=== PATIENT | female | born 1950 | race African-American/Black ===

== ENCOUNTER → 2017-04-16 | Outpatient (CLI) | payer MEDICARE, OTHER ==
[~2017-04-16] MED LIST: AMIT25TA9 PO; AMLO5 PO; CHAR280C PO; FERR325C PO; KETO10 PO; POTA99TA4 PO; PROM25TA10 PO; TYLE325T PO; VITA250C3 CHEW
[2017-04-16 11:45] LABS: AUTOMATED NEUTROPHIL # 1.7 TH/MM3 (1.8-7.7); BASOPHIL % 0.4 % (0.0-2.0); EOSINOPHIL # 0.1 TH/MM3 (0-0.4); EOSINOPHIL % 2.1 % (0.0-4.0); HEMATOCRIT 36.8 % (35.0-46.0); HEMO FLAGS DIFF FINAL; LYMPH % 45.9 % (9.0-44.0); LYMPHOCYTE # 1.9 TH/MM3 (1.0-4.8); MEAN CELL VOLUME 93.8 FL (80.0-100.0); MEAN CORPUSCULAR HEMOGLOBIN 30.8 PG (27.0-34.0); MEAN CORPUSCULAR HGB CONC 32.9 % (32.0-36.0); MONO % 10.1 % (0.0-8.0); NEUT % 41.5 % (16.0-70.0); PLATELET COUNT 291 TH/MM3 (150-450); RED BLOOD COUNT 3.92 MIL/MM3 (4.00-5.30); RED CELL DISTRIBUTION WIDTH 13.7 % (11.6-17.2); WHITE BLOOD COUNT 4.1 TH/MM3 (4.0-11.0)
--- NOTE | 2017-04-17 20:06 | EKG ---
Date Performed: 04/16/2017 Time Performed: 11:43:40 PTAGE: 66 years EKG: Sinus rhythm . rSr'(V1) - probable normal variant Septal T wave changes are nonspecific Borderline ECG NO PREVIOUS TRACING DOCTOR: Cassie Aly Interpretating Date/Time 04/17/2017 20:05:07
== END ==
LOC: CLAB 11:19
PROVIDERS: ATTEND Surgery
DX: K43.2 Incisional hernia without obstruction or gangrene (principal); R94.31 Abnormal electrocardiogram [ECG] [EKG]
CPT/HCPCS: 36415; 85025; 93005

== ENCOUNTER 2017-04-22 05:52 | Inpatient (IN) | payer MEDICARE ==
[~2017-04-22] VITALS: Ht 149.9 cm; Wt 58.7 kg
[2017-04-22] MEDS ORDERED: AMLO5 PO (07:53)
[2017-04-22] MEDS ORDERED: POTA99TA4 PO (08:01)
[2017-04-22] MEDS ORDERED: CHAR280C PO (08:01)
[2017-04-22] MEDS ORDERED: AMIT25TA9 PO (08:01)
[2017-04-22] MEDS ORDERED: TYLE325T PO (08:01)
[2017-04-22] MEDS ORDERED: FERR325C PO (08:01)
[2017-04-22] MEDS ORDERED: PROM25TA10 PO (08:01)
[2017-04-22] MEDS ORDERED: VITA250C3 CHEW (08:01)
[2017-04-22] MEDS ORDERED: LACTATED RINGER'S 1000 ML IV PRN (08:15)
[2017-04-22] MEDS ORDERED: POVIDONE IODINE 5% (ANTISEPSIS KIT) 4 APPLICATIONS EACH NARE PRN (08:15)
[2017-04-22] MEDS ORDERED: CHLORHEXIDINE GLUCONATE 2 % 1 PACK (2 CLOTHS) TOPICAL PRN (08:15)
[2017-04-22] MEDS ORDERED: METOPROLOL TARTRATE 25 MG TAB PO PRN (08:15)
[2017-04-22] MEDS ORDERED: SODIUM CHLORID 0.9% 500 ML IV PRN (08:15)
[2017-04-22] MEDS ORDERED: INSULIN HUMAN REGULAR 1,000 UNITS/10 ML VIAL SQ PRN (08:15)
[2017-04-22] MEDS ORDERED: ePHEDrine/NS 25 MG/5 ML SYR IV ONE (08:50)
[2017-04-22] MEDS ORDERED: NEOSTIGMINE 3 MG/3 ML SYR IV ONE (08:50)
[2017-04-22] MEDS ORDERED: PROPOFOL 200 MG/20 ML AMP IV ONE (08:50)
[2017-04-22] MEDS ORDERED: ONDANSETRON HCL 4 MG/2 ML VIAL IV PUSH ONE (08:50)
[2017-04-22] MEDS ORDERED: PHENYLEPH/NS 1000 MCG/10 ML SYR IV ONE (08:50)
[2017-04-22] MEDS ORDERED: ACETAMINOPHEN 1000 MG/100 ML VIAL IV SCH (09:15)
[2017-04-22] MEDS ORDERED: ceFAZolin 2 GM PREMIX 50 ML IV SCH (09:15)
[2017-04-22] MEDS ORDERED: FAMOTIDINE 20 MG/2 ML VIAL ONE (10:04)
[2017-04-22] MEDS ORDERED: ACETAMINOPHEN 1000 MG/100 ML 0 ML IV ONE (10:04)
[2017-04-22] MEDS ORDERED: BUPIVACAINE/EPINEPHRINE 0.25% 50 ML VIAL ONE (10:04)
[2017-04-22] MEDS ORDERED: DO NOT ADM ANY ANTICOAGULANT DRUGS PRN (12:54)
[2017-04-22] MEDS ORDERED: MIDAZOLAM HCL 2 MG/2 ML VIAL ONE (12:59)
[2017-04-22] MEDS ORDERED: oxyCODONE/ACETAMINOPHEN 5 MG/325 MG TAB ONE (14:25)
[2017-04-22] MEDS: oxyCODONE/ACETAMINOPHEN 5 MG/325 MG TAB PO PRN ×2 (14:30→18:24)
[2017-04-22] MEDS ORDERED: KETOROLAC TROMETHAMINE 60 MG/2 ML (IM) VIAL IM ONE (15:15)
[2017-04-22] MEDS ORDERED: SODIUM CHLORIDE 0.9% FLUSH 10 ML FLUSH IV FLUSH PRN (15:15)
[2017-04-22] MEDS ORDERED: oxyCODONE/ACETAMINOPHEN 5 MG/325 MG TAB PO PRN (15:15)
[2017-04-22] MEDS: amLODIPine BESYLATE 5 MG TAB PO SCH (16:30)
[2017-04-22] MEDS ORDERED: ACETAMINOPHEN 325 MG TAB PO PRN (16:30)
[2017-04-22] MEDS ORDERED: fentaNYL 50 MCG/HR PATCH T-DERMAL SCH (17:00)
[2017-04-22] MEDS: KETOROLAC TROMETHAMINE 30 MG/ML (IVP) VIAL IV PUSH SCH ×2 (17:15→23:53)
[2017-04-22 20:00] VITALS: BP 124/74; PULSE 90; RESP 16; TEMP 97.8; O2SAT 92
[2017-04-22] MEDS: ONDANSETRON HCL 4 MG/2 ML VIAL IV PRN (20:32)
[2017-04-22] MEDS: SODIUM CHLORIDE 0.9% FLUSH 10 ML FLUSH IV FLUSH SCH (20:36)
[2017-04-22] MEDS: AMITRIPTYLINE HCL 25 MG TAB PO SCH (20:36)
[2017-04-23] VITALS (7 sets, daily range): BP systolic 104–142; BP diastolic 57–84; PULSE 76–92; RESP 16–18; TEMP 96.6–97.9; O2SAT 93–100
[2017-04-23] MEDS: ONDANSETRON HCL 4 MG/2 ML VIAL IV PRN ×2 (02:57→08:25)
[2017-04-23] MEDS: oxyCODONE/ACETAMINOPHEN 5 MG/325 MG TAB PO PRN ×4 (02:58→23:44)
[2017-04-23] MEDS: KETOROLAC TROMETHAMINE 30 MG/ML (IVP) VIAL IV PUSH SCH ×4 (04:49→23:40)
[2017-04-23] MEDS: SODIUM CHLORIDE 0.9% FLUSH 10 ML FLUSH IV FLUSH SCH ×2 (08:26→19:37)
[2017-04-23] MEDS: ENOXAPARIN SODIUM 30 MG/0.3 ML SYRINGE SQ SCH (08:26)
[2017-04-23] MEDS: amLODIPine BESYLATE 5 MG TAB PO SCH (08:26)
[2017-04-23] MEDS ORDERED: PT:POTASSIUM 99 MG PO SCH (09:00)
[2017-04-23] MEDS ORDERED: NON-FORMULARY DRUG (Potassium 99 MG) PO SCH (09:00)
[2017-04-23] MEDS ORDERED: diphenhydrAMINE HCL 50 MG/ML VIAL IV ONE (11:15)
[2017-04-23] MEDS ORDERED: METOCLOPRAMIDE HCL SYRUP 10 MG/10 ML UDC PO PRN (13:00)
--- NOTE | 2017-04-23 13:14 | HHI.PR ---
Subjective Subjective Notes Sitting on side of bed C/O nausea not relieved with ondansetron Had reaction to Percocet (itching, was given Benadryl 25mg IV) Objective Vitals/I&O Vital Signs Date Time Temp Pulse Resp B/P (MAP) Pulse Ox O2 Delivery O2 Flow Rate FiO2 04/23/17 12:00 97.1 92 17 117/77 (90) 95 04/22/17 15:15 Room Air 04/22/17 13:00 2 Cardiovascular: Regular Lungs: Clear Abdomen: Post-op tenderness Extremities: Perfused Wound Wound : Wound Location: Abdomen Appearance: Clean & Dry A/P Assessment and Plan 66yo F POD#1 laparoscopic incisional hernia repair -Add Reglan and Scopolamine for nausea -Increase diet to full liquids -Pain control somewhat difficult due to reaction with multiple agents. Currently using Toradol and Fentanyl -Continue with frequent ambulation The exam, history, and the medical decision-making described in the above note were completed with the assistance of the mid-level provider. I reviewed and agree with the findings presented. I attest that I had a [id number] encounter with the patient on the same day, and personally performed and documented my assessment and findings in the medical record. Discharge Planning D/C possibly tomorrow Isha Flores Apr 23, 2017 13:14 Miguel Ángel Magana MD May 12, 2017 17:11
[2017-04-23] MEDS ORDERED: SCOPOLAMINE 1.5 MG PATCH T-DERMAL ONE (14:00)
[2017-04-23] MEDS: diphenhydrAMINE HCL ELIXIR 12.5 MG/5 ML CUP PO SCH ×2 (17:32→19:37)
[2017-04-23] MEDS: AMITRIPTYLINE HCL 25 MG TAB PO SCH (19:37)
[2017-04-24 00:59] VITALS: BP 122/80; PULSE 84; RESP 16; TEMP 96.9; O2SAT 94
[2017-04-24] MEDS: diphenhydrAMINE HCL ELIXIR 12.5 MG/5 ML CUP PO SCH ×4 (03:16→20:35)
[2017-04-24] MEDS: KETOROLAC TROMETHAMINE 30 MG/ML (IVP) VIAL IV PUSH SCH ×3 (05:28→16:36)
[2017-04-24] MEDS: oxyCODONE/ACETAMINOPHEN 5 MG/325 MG TAB PO PRN (05:28)
[2017-04-24 08:00] VITALS: BP 117/65; PULSE 83; RESP 18; TEMP 96.8; O2SAT 98
[2017-04-24] MEDS: ENOXAPARIN SODIUM 30 MG/0.3 ML SYRINGE SQ SCH (08:53)
[2017-04-24] MEDS: amLODIPine BESYLATE 5 MG TAB PO SCH (08:53)
[2017-04-24] MEDS: SODIUM CHLORIDE 0.9% FLUSH 10 ML FLUSH IV FLUSH SCH ×2 (08:53→20:35)
[2017-04-24 12:00] VITALS: BP 134/73; PULSE 95; RESP 18; TEMP 97.7; O2SAT 95
[2017-04-24 14:18] VITALS: O2SAT 100
[2017-04-24 16:00] VITALS: BP 125/76; PULSE 102; RESP 17; TEMP 98.6; O2SAT 98
[2017-04-24] MEDS: DOCUSATE SODIUM 100 MG CAP PO SCH ×2 (16:34→20:35)
[2017-04-24] MEDS: POLYETHYLENE GLYCOL 17 GM PKG PO SCH (16:35)
--- NOTE | 2017-04-24 16:52 | HHI.PR ---
Subjective Subjective Notes Laying in bed Still complaining of abdominal pain Nausea resolved Objective Vitals/I&O Vital Signs Date Time Temp Pulse Resp B/P (MAP) Pulse Ox O2 Delivery O2 Flow Rate FiO2 04/24/17 14:18 100 04/24/17 12:00 97.7 95 18 134/73 (93) 04/22/17 15:15 Room Air 04/22/17 13:00 2 Cardiovascular: Regular Lungs: Clear Abdomen: Post-op tenderness Extremities: Perfused Wound Wound : Wound Location: Abdomen Appearance: Clean & Dry A/P Assessment and Plan 66yo F POD#2 laparoscopic incisional hernia repair -Increase ambulation to help with gas pains -Increase diet to regular -Pain control somewhat difficult due to reaction with multiple agents. Currently using Toradol and Fentanyl, pain is somewhat better from a surgical standpoint The exam, history, and the medical decision-making described in the above note were completed with the assistance of the mid-level provider. I reviewed and agree with the findings presented. I attest that I had a [id number] encounter with the patient on the same day, and personally performed and documented my assessment and findings in the medical record. Discharge Planning D/C possibly tomorrow Isha Flores Apr 24, 2017 16:52 Miguel Ángel Magnaa MD May 12, 2017 16:31
[2017-04-24 20:00] VITALS: BP 119/76; PULSE 99; RESP 18; TEMP 98.4; O2SAT 97
[2017-04-24] MEDS: AMITRIPTYLINE HCL 25 MG TAB PO SCH (20:35)
[2017-04-25] VITALS: BP 102/68; PULSE 101; RESP 18; TEMP 97.7; O2SAT 94
[2017-04-25] MEDS: oxyCODONE/ACETAMINOPHEN 5 MG/325 MG TAB PO PRN ×3 (00:39→13:13)
[2017-04-25] MEDS: KETOROLAC TROMETHAMINE 30 MG/ML (IVP) VIAL IV PUSH SCH ×3 (00:39→13:08)
[2017-04-25] MEDS: diphenhydrAMINE HCL ELIXIR 12.5 MG/5 ML CUP PO SCH ×2 (05:19→08:34)
[2017-04-25 06:08] VITALS: O2SAT 97
[2017-04-25 08:00] VITALS: BP 104/64; PULSE 68; RESP 16; TEMP 96.3; O2SAT 97
[2017-04-25] MEDS: SODIUM CHLORIDE 0.9% FLUSH 10 ML FLUSH IV FLUSH SCH (08:34)
[2017-04-25] MEDS: DOCUSATE SODIUM 100 MG CAP PO SCH (08:34)
[2017-04-25] MEDS: POLYETHYLENE GLYCOL 17 GM PKG PO SCH (08:35)
[2017-04-25] MEDS: amLODIPine BESYLATE 5 MG TAB PO SCH (08:35)
[2017-04-25] MEDS: ENOXAPARIN SODIUM 30 MG/0.3 ML SYRINGE SQ SCH (08:35)
--- NOTE | 2017-04-25 11:58 | HHI.DS ---
Discharge Summary Admission Date Apr 22, 2017 at 16:19 Discharge Date: Apr 25, 2017 Admitting Diagnosis Procedures Laparoscopic incisional hernia repair with mesh Brief History History significant for multiple abdominal surgeries was initially here for outpatient incisional hernia repair was kept inpatient due to uncontrolled pain and nausea PE at Discharge Cardiac: RRR Lungs: CTA Abdomen: Post op tenderness. Incisions clean, dry, and intact Extremities: perfused Hospital Course The patient was admitted for pain control which was somewhat difficult due to her allergies listed above. She was eventually controlled with Toradol and Fentanyl patch. Nausea was controlled by medication and she was eventually able to progress her diet. The patient was sent home in stable condition Pt Condition on Discharge: Stable Discharge Disposition: Discharge Home Discharge Instructions DIET: Follow Instructions for: As Tolerated, No Restrictions Activities you can perform: Shower Only-No Bath Activities to Avoid: Strenuous Activity New Medications: Ketorolac (Ketorolac) 10 Mg Tab 10 MG PO Q6HR PRN for PAIN for 3 Days, TAB 0 Refills Continued Medications: Acetaminophen (Tylenol) 325 Mg Tab 325 MG PO Q4H PRN for HEADACHE, TAB 0 Refills Amitriptyline (Amitriptyline) 25 Mg Tab 25 MG PO HS, TAB Amlodipine (Norvasc) 5 Mg Tab 5 MG PO DAILY for Blood Pressure Management, #30 TAB 0 Refills Ascorbic Acid (Vitamin C) 250 Mg Chew 250 MG CHEW BID for Nutritional Supplement, #60 TAB 0 Refills Charcoal (Charcoal) 200 Mg Cap 200 MG PO TIDAC Ferrous Sulfate (Iron) 325 Mg Cap 325 MG PO DAILY for Nutritional Supplement, #30 TAB 0 Refills Potassium (Potassium) 99 Mg Tablet 99 MG PO DAILY Promethazine (Phenergan) 25 Mg Tablet 25 MG PO Q6H PRN for NAUSEA OR VOMITING, TAB 0 Refills Isha Flores Apr 25, 2017 11:58
[2017-04-25 12:00] VITALS: BP 102/57; PULSE 77; RESP 17; TEMP 96.9; O2SAT 94
[2017-04-25] MEDS ORDERED: KETO10 PO (12:01)
[2017-04-25] MEDS ORDERED: REMOVE OLD DURAGESIC (FENTANYL) PATCH T-DERMAL SCH ×2 (13:00→17:00)
[2017-04-25] MEDS ORDERED: fentaNYL 25 MCG/HR PATCH T-DERMAL ONE (13:00)
[2017-04-26] MEDS ORDERED: REMOVE OLD SCOPOLAMINE PATCH T-DERMAL SCH (14:00)
--- NOTE | 2017-05-15 11:03 | MP ---
cc: MIGUEL ÁNGEL BOOTH DATE OF SURGERY: 04/22/2017 DATE OF : 1950 PREOPERATIVE DIAGNOSIS Incisional hernia. POSTOPERATIVE DIAGNOSIS Incisional hernia. PROCEDURE 1. Laparoscopic repair of incisional hernia with Ventralex ST mesh with echo deployment system, 6 x 8 inches. 2. Extensive lysis of adhesions. SURGEON Miguel Ángel Booth. ANESTHESIA General endotracheal. ESTIMATED BLOOD LOSS Scant. FINDINGS Adhesions of small bowel to abdominal wall. SPECIMENS None. COMPLICATIONS None. OPERATION The patient was brought to the operating room and placed on the operating table in supine position. Bilateral sequential inflation devices were placed on lower extremities. General anesthesia was instituted. A Cornell catheter was placed. Antibiotics were initiated. The abdomen was prepped and draped sterilely. A point in the left upper quadrant was anesthetized with 0.25% Marcaine with epinephrine. A skin incision was made. A 5 mm OptiView port was placed under direct vision and pneumoperitoneum created. Under direct vision an additional 5 mm port was placed in the left upper quadrant. There were adhesions of small bowel, transverse colon and upper abdomen to the abdominal wall. This was taken down using sharp dissection. Once this was completed two additional ports are placed in the right upper quadrant. The hernia defect was visualized. Ventralex ST mesh was opened on the back table. It was then introduced into the abdominal cavity. Prior to deployment of the mesh the patient's bowel was evaluated. The patient was noted to have a gastric bypass. There was no identifiable Glasgow defect, no defect of the enteroenterostomy. There were some adhesions at the jejunojejunostomy. This was taken down sharply. No signs of intussusception. Once this was completed the mesh was deployed to cover the fascial defect. It was then secured in place using the SecureStrap. This was placed at the periphery of the mesh placed 1 cm circumferntially. The deployment device was then removed from the abdominal cavity. Transfascial sutures were placed at the four corners of the mesh. The mesh appeared to lay well. The CO2 was then released. All ports were removed. The fascia at the 12 mm port site was approximated with 0 Vicryl. All skin edges were approximated with 4-0 Monocryl. The abdominal wall was cleaned and a sterile dressing placed. The patient was awakened and taken to the recovery room. MD INES Ybarra /1:55 AM /10:43 AM
== END 2017-04-25 13:22 | disposition home or self-care (01) | DRG 941 ==
LOC: HSDC 05:52 → HSDI 16:19 → N07A 17:56
PROVIDERS: ADMIT Surgery; ATTEND Surgery
PROC: 0WUF4JZ Supplement Abdominal Wall with Synthetic Substitute, Percutaneous Endoscopic Approach (ICD-10-PCS; principal; 2017-04-22 10:10)
DX: G89.18 Other acute postprocedural pain (principal); R11.0 Nausea; I10 Essential (primary) hypertension; K43.2 Incisional hernia without obstruction or gangrene; E78.5 Hyperlipidemia, unspecified; F32.9 Major depressive disorder, single episode, unspecified; E53.8 Deficiency of other specified B group vitamins; L29.9 Pruritus, unspecified; T39.1X5A Adverse effect of 4-Aminophenol derivatives, initial encounter; Y92.230 Patient room in hospital as the place of occurrence of the external cause
CPT/HCPCS: C1781; J0131; J0690; J1200; J1650; J1885; J2250; J2370; J2405; J2710; J3010; J7120

== ENCOUNTER 2017-08-14 14:59 | Emergency (ER) | payer MEDICARE ==
[2017-08-14 15:00] VITALS: BP 150/87; PULSE 111; RESP 16; TEMP 98.4; O2SAT 98
[2017-08-14 15:41] LABS: AUTOMATED NEUTROPHIL # 1.6 TH/MM3 (1.8-7.7); BASOPHIL % 0.6 % (0.0-2.0); EOSINOPHIL # 0.1 TH/MM3 (0-0.4); EOSINOPHIL % 2.4 % (0.0-4.0); HEMATOCRIT 38.6 % (35.0-46.0); HEMOGLOBIN 13.2 GM/DL (11.6-15.3); LYMPH % 49.3 % (9.0-44.0); LYMPHOCYTE # 2.3 TH/MM3 (1.0-4.8); MEAN CELL VOLUME 93.8 FL (80.0-100.0); MEAN CORPUSCULAR HEMOGLOBIN 32.2 PG (27.0-34.0); MEAN CORPUSCULAR HGB CONC 34.3 % (32.0-36.0); MEAN PLATELET VOLUME 7.6 FL (7.0-11.0); MONO % 13.1 % (0.0-8.0); MONOCYTE # 0.6 TH/MM3 (0-0.9); NEUT % 34.6 % (16.0-70.0); PLATELET COUNT 300 TH/MM3 (150-450); RED BLOOD COUNT 4.11 MIL/MM3 (4.00-5.30); RED CELL DISTRIBUTION WIDTH 13.9 % (11.6-17.2); WHITE BLOOD COUNT 4.7 TH/MM3 (4.0-11.0)
[2017-08-14 15:58] LABS: PROTHROMBIN TIME - PATIENT 10.3 SEC (9.8-11.6)
[2017-08-14 16:02] LABS: ALBUMIN 4.3 GM/DL (3.4-5.0); ALT (GPT) 28 U/L (10-53); AST (GOT) 25 U/L (15-37); BICARBONATE 27.3 MEQ/L (21.0-32.0); BLOOD UREA NITROGEN 14 MG/DL (7-18); CHLORIDE 106 MEQ/L (98-107); CREATININE 0.78 MG/DL (0.50-1.00); GLOMERULAR FILTRATION RATE 89 ML/MIN (>89); GLUCOSE,RANDOM 73 MG/DL (74-106); LIPASE 174 U/L (73-393); SODIUM (NA) 139 MEQ/L (136-145)
[2017-08-14 16:05] LABS: ALKALINE PHOSPHATASE 101 U/L (45-117); TOTAL BILIRUBIN ADULT 0.4 MG/DL (0.2-1.0); TOTAL PROTEIN 8.3 GM/DL (6.4-8.2)
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
[2017-08-14] MEDS ORDERED: DIATRIZOATE MEGLUM/DIATRIZOATE SOD 9 ML CUP PO ONE (17:45)
[2017-08-14 21:30] VITALS: BP 134/87; PULSE 77; RESP 16; O2SAT 99
--- NOTE | 2017-08-14 22:55 | RADRPT ---
EXAM DATE/TIME: 08/14/2017 21:26 [facility] COMPARISON: No previous studies available for comparison. INDICATIONS : Patient complains of abdominal pain. ORAL CONTRAST: Prescribed oral contrast ingested. RADIATION DOSE: 6.64 CTDIvol (mGy) MEDICAL HISTORY : None SURGICAL HISTORY : Gastric bypass. Hysterectomy.Cholecystectomy.gastric bypass hernia ENCOUNTER: Initial ACUITY: 1 day PAIN SCALE: 2/10 LOCATION: abdomen TECHNIQUE: Volumetric scanning of the abdomen and pelvis was performed. Using automated exposure control and ad justment of the mA and/or kV according to patient size, radiation dose was kept as low as reasonably achievable to obtain optimal diagnostic quality images. DICOM format image data is available electro nically for review and comparison. FINDINGS: LOWER LUNGS: The visualized lower lungs are clear. LIVER: Homogeneous density without lesion noncontrast technique. There is no dilation of the biliary tree. Cholecystectomy. SPLEEN: Normal size without lesion. PANCREAS: Within normal limits. KIDNEYS: Normal in size and shape. There is no mass, stone, or hydronephrosis. ADRENAL GLANDS: Within normal limits. VASCULAR: There is no aortic aneurysm. BOWEL/MESENTERY: No dilated loops of small or large bowel. Oral contrast passes through to the transverse colon. Nex t no suture about the stomach. Moderate size hiatus hernia. No evidence of free fluid. ABDOMINAL WALL: Within normal limits. RETROPERITONEUM: There is no lymphadenopathy. BLADDER: No wall thickening or mass. REPRODUCTIVE: Within normal limits. INGUINAL: There is no lymphadenopathy or hernia. MUSCULOSKELETAL: Hypertrophic degenerative changes in the posterior elements of the lower lumbar spine and anterolisth esis with severe spinal stenosis at L4-5 CONCLUSION: 1. Severe spinal stenosis L4-5. 2. No dilated loops of small or large bowel. 3. Evidence of prior gastric surgery with moderate sinusitis hernia. Luiz Weston MD on August 14, 2017 at 22:49 Board Certified Radiologist. This report was verified electronically.
== END 2017-08-14 23:32 | disposition home or self-care (01) ==
LOC: NEPD 14:59
DX: R10.9 Unspecified abdominal pain (principal); I10 Essential (primary) hypertension; M19.90 Unspecified osteoarthritis, unspecified site; M48.061 Spinal stenosis, lumbar region without neurogenic claudication; J32.9 Chronic sinusitis, unspecified; Z88.5 Allergy status to narcotic agent; Z98.84 Bariatric surgery status; Z98.890 Other specified postprocedural states; Z91.013 Allergy to seafood
CPT/HCPCS: 74176; 80053; 83690; 85025; 85610; 85730; 99285; Q9963